=== PATIENT | male | born 1980 | race African-American/Black ===

== ENCOUNTER 2016-10-27 07:39 | Emergency (ER) | payer OTHER ==
[~2016-10-27] VITALS: Ht 180.3 cm; Wt 95.5 kg
[~2016-10-27 07:39] MED LIST: IBUP800T23 PO; METH750T2 PO
[2016-10-27 07:41] VITALS: BP 145/88; PULSE 78; RESP 14; TEMP 98.1; O2SAT 99
[2016-10-27] MEDS ORDERED: IBUP800T23 PO (07:56)
--- NOTE | 2016-10-27 07:56 | PD ---
HPI . b/l shoulder pain Chief Complaint: Pain: Acute or Chronic Time Seen by Provider: 07:51 Travel History International Travel<30 days: No Contact w/Intl Traveler<30days: No Traveled to known affect area: No History of Present Illness HPI 35-year-old male here with complaints of bilateral shoulder pain for over one week. Patient tells me that initially he slept wrong on his left shoulder and that he played some basketball yesterday and seemed to have aggravated his left and right shoulder. Patient says that he thinks his right shoulder might have come out of place yesterday. It is now back in place and he has full range of motion. He reports some discomfort with movement of his shoulder that radiates up into his neck. He denies any recent falls. He has no other complaints PFSH Past Medical History Medical History: Denies Significant Hx Diminished Hearing: No Immunizations Current: No Tetanus Vaccination: < 5 Years Influenza Vaccination: No Past Surgical History Surgical History: No Previous Surgery Social History Alcohol Use: Yes (social) Tobacco Use: No Substance Use: No Allergies-Medications (Allergen,Severity, Reaction): Coded Allergies: No Known Allergies (Verified , 10/27/16) Reported Meds & Prescriptions Reported Meds & Active Scripts Active Ibuprofen 800 Mg Tab 800 Mg PO TID Review of Systems General / Constitutional: No: Fever Eyes: No: Visual changes HENT: No: Headaches Cardiovascular: No: Chest Pain or Discomfort Respiratory: No: Shortness of Breath Gastrointestinal: No: Abdominal Pain Genitourinary: No: Dysuria Musculoskeletal: Positive: Pain (b/l shoulder) Skin: No Rash Neurologic: No: Weakness Psychiatric: No: Depression Endocrine: No: Polydipsia Hematologic/Lymphatic: No: Easy Bruising Physical Exam Narrative GENERAL: AAO x 3, no acute distress, Well-nourished, well-developed patient. SKIN: Warm and dry. No visible rashes or bruising. HEAD: Normocephalic and atraumatic. EYES: No scleral icterus. No injection or drainage. ENT: No nasal drainage noted. Airway patent. NECK: Supple, trachea midline. No JVD. CARDIOVASCULAR: Regular rate and rhythm without murmurs, gallops, or rubs. RESPIRATORY: Breath sounds equal bilaterally. No accessory muscle use. No rhonchi or rales. GASTROINTESTINAL: Abdomen soft, non-tender, nondistended. EXTREMITIES: No cyanosis or edema. Full range of motion bilateral upper extremities. Strength slightly diminished on the right upper extremity. Positive rotator cuff test on the right side. Weeder Thinner strength normal bilaterally BACK: Nontender without obvious deformity. No CVA tenderness. PSYCH: AAO x 3, normal affect. Data Data Last Documented VS Vital Signs Date Time Temp Pulse Resp B/P Pulse Ox O2 Delivery O2 Flow Rate FiO2 10/27/16 07:41 98.1 78 14 145/88 99 MDM Medical Decision Making Medical Screen Exam Complete: Yes Emergency Medical Condition: Yes Medical Record Reviewed: Yes Differential Diagnosis Shoulder pain, rotator cuff injury, cervical radiculopathy Narrative Course 35-year-old male here with complaints of bilateral shoulder pain for over one week. Patient tells me that initially he slept wrong on his left shoulder and that he played some basketball yesterday and seemed to have aggravated his left and right shoulder. Patient says that he thinks his right shoulder might have come out of place yesterday. It is now back in place and he has full range of motion. He reports some discomfort with movement of his shoulder that radiates up into his neck. He denies any recent falls. He has no other complaints Patient seen and examined. He has full range of motion of his bilateral shoulders, I believe that he has a possible rotator cuff injury on the right side. I have discussed these findings with him and explained that x-ray is not warranted. I've advised him to establish with a primary care provider to see if they would consider MRI imaging. I will provide him with a course of anti-inflammatories. Ultimately he will need to follow-up with primary care provider. I discussed all of this with the patient and he is in agreement. Patient verbalized understanding of instructions, questions were answered, and thanked me for their care. I advised them if their condition worsens, please return to the nearest emergency room for further care. Diagnosis Primary Impression: Shoulder pain, bilateral Qualified Code: M25.511 - Acute pain of both shoulders Additional Impression: Rotator cuff disorder Qualified Code: M67.911 - Rotator cuff disorder, right Patient Instructions: General Instructions Additional Instructions: Please return to emergency department if your symptoms return or worsen. Follow up with your primary care provider. Take medications as prescribed. As we discussed, please establish with a primary care provider for further workup and treatment. They will determine if you need any further imaging. Med/Other Pt SpecificInfo: Prescription(s) given Scripts Ibuprofen 800 Mg [id number] Mg PO TID #21 TAB Prov:Belkis Watson 10/27/16 Disposition: 01 DISCHARGE HOME Condition: Stable Juliet Paredes October 27, 2016 07:56
== END 2016-10-27 07:58 | disposition home or self-care (01) ==
LOC: NEPK 07:39
DX: M25.511 Pain in right shoulder (principal); M25.512 Pain in left shoulder
CPT/HCPCS: 99283

== ENCOUNTER 2017-11-05 09:25 | Emergency (ER) | payer OTHER ==
[~2017-11-05] VITALS: Ht 177.8 cm; Wt 111.0 kg
[~2017-11-05 09:25] MED LIST changes: +IBUP1TAB7 PO; -IBUP800T23 PO; -METH750T2 PO
[2017-11-05 09:30] VITALS: BP 156/89; PULSE 73; RESP 16; TEMP 98.5; O2SAT 99
[2017-11-05 09:49] VITALS: BP 140/87; PULSE 97; RESP 16; O2SAT 98
[2017-11-05] MEDS ORDERED: SODIUM CHLOR 0.9% 1000 ML INJ 1,000 ML IV ONE (10:15)
[2017-11-05] MEDS ORDERED: diphenhydrAMINE HCL 50 MG/ML VIAL IV PUSH ONE (10:15)
[2017-11-05] MEDS ORDERED: PROCHLORPERAZINE INJ 10 MG/2 ML VIAL IV PUSH ONE (10:15)
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
[2017-11-05 10:46] LABS: AUTOMATED NEUTROPHIL # 4.6 TH/MM3 (1.8-7.7); BASOPHIL # 0.2 TH/MM3 (0-0.2); EOSINOPHIL # 0.1 TH/MM3 (0-0.4); EOSINOPHIL % 1.5 % (0.0-4.0); HEMATOCRIT 36.3 % (39.0-51.0); HEMOGLOBIN 11.6 GM/DL (13.0-17.0); LYMPH % 28.4 % (9.0-44.0); LYMPHOCYTE # 2.2 TH/MM3 (1.0-4.8); MEAN CELL VOLUME 73.8 FL (80.0-100.0); MEAN CORPUSCULAR HEMOGLOBIN 23.6 PG (27.0-34.0); MEAN CORPUSCULAR HGB CONC 31.9 % (32.0-36.0); MEAN PLATELET VOLUME 8.9 FL (7.0-11.0); MONO % 8.3 % (0.0-8.0); MONOCYTE # 0.7 TH/MM3 (0-0.9); NEUT % 59.8 % (16.0-70.0); PLATELET COUNT 201 TH/MM3 (150-450); RED BLOOD COUNT 4.91 MIL/MM3 (4.50-5.90); RED CELL DISTRIBUTION WIDTH 16.2 % (11.6-17.2); WHITE BLOOD COUNT 7.8 TH/MM3 (4.0-11.0)
[2017-11-05 10:51] LABS: CALCIUM 8.9 MG/DL (8.5-10.1)
[2017-11-05 10:52] LABS: BICARBONATE 29.5 MEQ/L (21.0-32.0)
[2017-11-05 10:55] LABS: CREATININE 1.3 MG/DL (0.60-1.30)
[2017-11-05 11:03] VITALS: BP 141/88; PULSE 80; RESP 16; O2SAT 98
[2017-11-05 11:31] LABS: TARGET CELLS 1+ (NORMAL)
[2017-11-05] MEDS ORDERED: IBUP1TAB7 PO (12:05)
[2017-11-05 12:10] VITALS: BP 140/83; PULSE 70; RESP 16; O2SAT 98
== END 2017-11-05 12:20 | disposition home or self-care (01) ==
LOC: PHED 09:25
DX: R51 Headache (principal); M79.1 Myalgia; R42 Dizziness and giddiness; G89.29 Other chronic pain; M54.9 Dorsalgia, unspecified; D64.9 Anemia, unspecified
CPT/HCPCS: 80048; 82550; 82552; 85025; 96361; 96374; 96375; 99284; J0780; J1200; J7030